=== PATIENT | male | born 1960 | race Caucasian/White ===

== ENCOUNTER 2017-06-15 11:05 | Emergency (ER) | payer OTHER ==
--- NOTE | 2017-06-15 11:43 | RADIOLOGY REPORT ---
HISTORY: Left hand injury. COMPARISON: None. FINDINGS: 3 views of the hand obtained. No acute fracture or dislocation is demonstrated. There are no bony les ions, erosions, or arthritic changes. IMPRESSION: No acute fracture or dislocation. Final Electronic Signature: This report was electronically signed by Abhi Mahajan MD on 06/15/2017 11:41 AM. roxane /
--- NOTE | 2017-06-15 12:00 | ER PHYSICIAN DOCUMENTATION ---
Physician Documentation [facility] Name:Alton Hernandez Age:57 yrs Sex:Male :1960 Arrival Date:06/15/2017 Time:11:05 Bed6 Private MD: Ho Acevedo Disposition: 06/15/17 11:50 Discharged to Home/Self Care. Impression: Hand Contusion, Hand Injury. - Condition is Good. - Discharge Instructions: CONTUSION, Hand, HAND SPRAIN - SPRAIN HAND. - Medical Reconciliation form form. - Follow up: Private Physician; When: As needed; Reason: Worsening of condition. - Problem is new. - Symptoms have improved. HPI: 06/15 11:48 This 57 yrs old Male presents to ER via Private Vehicle with complaints of sc Hand Injury - LEFT. 11:48 The patient or guardian reports injury. The complaints affect the left hand diffusely. sc Context: The problem was sustained outdoors, resulted from a fall. Onset: The symptom(s)/episode began/occurred 3 day(s) ago. Associated signs and symptoms: The patient has no apparent associated signs or symptoms. Historical: - Allergies: BLEOMYCINS; - Home Meds: 1. None - PMHx: HODGKINS ; - PSHx: BIOPSIES; HERNIA; - Tetanus: < 10 years. - Ebola Screening: : Patient denies travel to an Ebola-affected area in the 21 days before illness onset. No symptoms or risks identified at this time. . - Immunization history: Flu Vaccine >1 year. - Social history: Smoking status: Patient states was never smoker of tobacco. ROS: 11:48 Constitutional: Negative for fever, chills, and weight loss. sc Eyes: Negative for injury, pain, redness, and discharge. Neck: Negative for injury, pain, and swelling. Skin: Negative for injury, rash, and discoloration. 11:48 Neuro: Negative for headache, weakness, numbness, tingling, and seizure. sc 11:48 MS/extremity: Positive for injury or acute deformity, swelling, tenderness. Exam: Constitutional: This is a well developed, well nourished patient who is awake, alert, and in no acute distress. Head/Face: Normocephalic, atraumatic. Skin: Warm, dry with normal turgor. Normal color with no rashes, no lesions, and no evidence of cellulitis. 11:48 Neuro: Awake and alert, GCS 15, oriented to person, place, time, and situation. ut Cranial nerves II-XII grossly intact. Motor strength 5/5 in all extremities. Sensory grossly intact. Cerebellar exam normal. Normal gait. 11:48 Musculoskeletal/extremity: Extremities: grossly normal except: ecchymosis, swelling, ROM: intact in all extremities, Circulation is intact in all extremities. Sensation intact. 11:50 Skin: Exam negative for acute changes. ut Vital Signs: 11:23 BP 135 / 75; Pulse 76; Resp 16; Temp 98.5; Pulse Ox 95% on R/A; Weight 83.91 kg; Height lc 5 ft. 11 in. (180.34 cm); Pain 4/10; 11:58 Pain 2/10; lc 11:23 Body Mass Index 25.80 (83.91 kg, 180.34 cm) MDM: 11:09 Patient medically screened. ut 11:49 Differential diagnosis: closed fracture, contusion. Data reviewed: vital signs, nurses ut notes, radiologic studies, and as a result, I will discharge patient. Counseling: I had a detailed discussion with the patient and/or guardian regarding: the historical points, exam findings, and any diagnostic results supporting the discharge/admit diagnosis, radiology results, the need for outpatient follow up, with the patient's primary care provider. 06/15 11:44 Order name: HAND; [address] [place] [id number]; Complete Time: 11:48 EDMS 07 11:48 Interpretation: Normal. ut Dispensed Medications: No medications were administered Signatures: Amparo Nichols RN RN Ho Cason MD MD ut
--- NOTE | 2017-06-15 12:00 | ER NURSING DOCUMENTATION ---
Nurse's Notes [facility] Name:Alton Hernandez Age:57 yrs Sex:Male :1960 Arrival Date:06/15/2017 Time:11:05 Bed6 Private MD: Diagnosis:Hand Contusion;Hand Injury Presentation: 06/15 11:08 Acuity: GARCÍA 4 lc 11:16 Presenting complaint: Patient states: JAMMED LEFT FINGERS HIKING ON FRIDAY. SINCE C/O lc INCREASING SWELLING TO HAND AND CONSISTENT PAIN. SKIN INTACT, NO DEFORMITY. Transition of care: patient was not received from another setting of care. Notified ED Physician of patient's arrival and CC. 11:16 Method Of Arrival: Private Vehicle lc Triage Assessment: 11:21 General: Appears in no apparent distress, Behavior is cooperative. Pain: Complains of lc pain in left hand, 3RD AND 4TH DIGIT Pain At worst was 4 out of 10 on a pain scale. Quality of pain is described as aching, Pain began 2-3 days ago. Neuro: Level of Consciousness is awake, alert, Oriented to person, place, time, event. Musculoskeletal: Circulation, motion, and sensation intact Capillary refill < 3 seconds Range of motion intact in all extremities. Swelling present in FINGERS AND HAND. Injury Description: R/O FX. Historical: - Allergies: BLEOMYCINS; - Home Meds: 1. None - PMHx: HODGKINS ; - PSHx: BIOPSIES; HERNIA; - Tetanus: < 10 years. - Ebola Screening: : Patient denies travel to an Ebola-affected area in the 21 days before illness onset. No symptoms or risks identified at this time. . - Immunization history: Flu Vaccine >1 year. - Social history: Smoking status: Patient states was never smoker of tobacco. Screenin:24 Infectious Disease Risk None. Abuse screen: Denies threats or abuse. Denies injuries lc from another. Nutritional screening: No deficits noted. Assessment: 11:24 See Triage Assessment done by same RN. Vital Signs: 11:23 BP 135 / 75; Pulse 76; Resp 16; Temp 98.5; Pulse Ox 95% on R/A; Weight 83.91 kg; Height lc 5 ft. 11 in. (180.34 cm); Pain 4/10; 11:58 Pain 2/10; lc 11:23 Body Mass Index 25.80 (83.91 kg, 180.34 cm) ED Course: 11:06 Patient arrived in ED. jt 11:08 Amparo Nichols, RN is Primary Nurse. 11:09 Triage completed. 11: Ho Cason MD is Attending Physician. ky 11:25 Valuables Remains with patient Patient has correct armband on for positive lc identification. Bed in low position. Call light in reach. Ice pack to injury. 11:33 Port Xray Completed. hz Administered Medications: No medications were administered Outcome: 11:50 Discharge ordered by . ky 11:58 Discharged to home ambulatory. 11:58 Condition: good 11:58 Discharge Assessment: Patient awake, alert and oriented x 3. No cognitive and/or functional deficits noted. Patient verbalized understanding of disposition instructions. 11:58 Discharge instructions given to patient, Instructed on discharge instructions, follow up and referral plans. [facility] Demonstrated understanding of instructions, COPY OF XRAYS GIVEN 12:00 Patient left the ED. 06/16 10:41 Discharge F/U Call: Unable to reach: no answer lp Signatures: Amparo Nichols, RN RN Kendy Loaiza RN RN Ho Cason MD MD sc Tennant, Joanne jt Zolnowski, Heather
== END 2017-06-15 12:00 | disposition home or self-care (01) ==
LOC: ER 11:05
DX: S60.222A Contusion of left hand, initial encounter (principal); W19.XXXA Unspecified fall, initial encounter; Y92.89 Other specified places as the place of occurrence of the external cause; Y93.01 Activity, walking, marching and hiking
CPT/HCPCS: 99283